=== PATIENT | female | born 1970 | race Two or more races ===

== ENCOUNTER 2017-02-20 21:27 | Emergency (ER) | payer SELFPAY ==
[~2017-02-20 21:27] MED LIST: CORTIZONE-1028 G2 TP; IBUPROFEN600 MG ORAL; PENICILLIN V P500 MG PO; PERMETHRIN60 GM TOP
--- NOTE | 2017-02-20 22:25 | Emergency Room Report ---
History of Present Illness General Chief Complaint: To Be Triaged Present Illness HPI Patient checked chief complaint of abdominal pain. He was called multiple times but no response. Patient left without being seen. I did not see this patient. Allergies: Coded Allergies: No Known Allergies (Unverified , 08/07/12) Nursing Documentation-H Hx Cardiac Problems: No Hx Hypertension: No Hx Diabetes: No Hx Cancer: No Hx Seizures: No Medical Decision Making Diagnostic Impression: Primary Impression: Abdominal pain Qualified Codes: R10.9 - Unspecified abdominal pain Disposition: LEFT W/OUT BEING SEEN Referrals: NOT CHOSEN IPA/,REFERRING (PCP) ABDELRAHMAN LINDA M.D. Feb 20, 2017 22:25
== END 2017-02-20 22:10 | disposition left against medical advice (07) ==
LOC: EMR 22:10
DX: R10.9 Unspecified abdominal pain (principal); Z53.21 Procedure and treatment not carried out due to patient leaving prior to being seen by health care provider
CPT/HCPCS: 99281